=== PATIENT | female | born 1970 | race Caucasian/White ===

== ENCOUNTER 2017-04-22 14:03 | Emergency (ER) | payer OTHER ==
--- NOTE | 2017-04-22 15:38 | ER Document Report ---
HPI - HPI Patient complains to provider of: Left plantar foot pain Onset: This afternoon Pain Level: 5 Context: 47-year-old female has been having some discomfort plantar left foot near the heel but today when she was walking she felt something tear in the same area which caused excruciating sharp pain. She is unable to walk on it due to pain. Associated Symptoms: None Exacerbated by: Walking Relieved by: Denies Similar symptoms previously: No Recently seen / treated by doctor: No - ROS ROS below otherwise negative: Yes Systems Reviewed and Negative: Yes All other systems reviewed and negative Past Medical History - General Information source: Patient - Social History Smoking Status: Unknown if Ever Smoked Frequency of alcohol use: None Drug Abuse: None Lives with: Family Family History: Reviewed & Not Pertinent Neurological Medical History: Reports: Hx Migraine Surgical Hx: Negative - Immunizations Immunizations up to date: Yes Hx Diphtheria, Pertussis, Tetanus Vaccination: Yes Vertical Provider Document - CONSTITUTIONAL Agree With Documented VS: Yes Exam Limitations: No Limitations - INFECTION CONTROL TRAVEL OUTSIDE OF THE [place] IN LAST 30 DAYS: No - NECK Neck: Supple - RESPIRATORY O2 Sat by Pulse Oximetry: 97 - MUSCULOSKELETAL/EXTREMETIES Musculoskeletal/Extremeties: FROM, Tender - Plantar left foot fascia, Edema - Mild. negative: Eccymosis Notes: He will squeeze is negative and Achilles tendon is intact - NEURO Level of Consciousness: Awake, Alert Motor/Sensory: No Motor Deficit, No Sensory Deficit - DERM Integumentary: Warm, Dry Course - Re-evaluation Re-evalutation: 04/22/17 16:32 xrays are negative per radiologist. - Vital Signs Vital signs: Temp Pulse Resp BP Pulse Ox 98.0 F 77 20 160/94 H 97 04/22/17 14:14 04/22/17 14:14 04/22/17 14:14 04/22/17 14:14 04/22/17 14:14 Procedures - Immobilization Left Foot Time completed: 17:00 Pre-Proc Neuro Vasc Exam: Normal Immobilizer type: Russell wrap, Crutches Performed by: PCT Post-Proc Neuro Vasc Exam: Normal Alignment checked and good: Yes Discharge - Discharge Clinical Impression: Tendinitis of left foot Condition: Good Disposition: HOME, SELF-CARE Instructions: Russell Wrap ([facility]), Anti-Inflammatory Medication ([facility]), Use of Crutches ([facility]), Plantar Fasciitis or Heel Spur ([facility]) Additional Instructions: ice motrin Crutches for several days Russell wrap See the him tech Prescriptions: Ibuprofen [Motrin 800 mg Tablet] 800 mg PO Q8HP PRN #30 tablet PRN Reason: Referrals: STEPHEN ARCHULETA DPM [ACTIVE STAFF] - Follow up as needed
[2017-04-22] MEDS ORDERED: IBUPROFEN 800 MG TABLET PO ONE (15:44)
--- NOTE | 2017-04-22 16:06 | RADIOLOGY REPORT (SQ) ---
EXAM DESCRIPTION: FOOT LEFT COMPLETE COMPLETED DATE/TIME: 04/22/2017 3:59 pm REASON FOR STUDY: injury COMPARISON: None. NUMBER OF VIEWS: Three views. TECHNIQUE: AP, lateral and oblique radiographic images acquired of the left foot. LIMITATIONS: None. FINDINGS: MINERALIZATION: Normal. BONES: No acute fracture or dislocation. No worrisome bone lesions. JOINTS: No effusions. SOFT TISSUES: No soft tissue swelling. No foreign body. OTHER: No other significant finding. IMPRESSION: NO SIGNIFICANT RADIOGRAPHIC ABNORMALITY. TECHNICAL DOCUMENTATION: JOB ID: [id number] [employer]- All Rights Reserved Reading location - IP/workstation name: [email or web address]
--- NOTE | 2017-04-22 16:13 | RADIOLOGY REPORT (SQ) ---
EXAM DESCRIPTION: OS CALCIS/HEEL LEFT COMPLETED DATE/TIME: 04/22/2017 4:02 pm REASON FOR STUDY: injury COMPARISON: None. NUMBER OF VIEWS: Two views. TECHNIQUE: Plantar and lateral images acquired of the left calcaneous. LIMITATIONS: None. FINDINGS: MINERALIZATION: Normal. BONES: No acute fracture or dislocation. No worrisome bone lesions. JOINTS: No effusions. SOFT TISSUES: No soft tissue swelling. No foreign body. OTHER: No other significant finding. IMPRESSION: NEGATIVE STUDY OF THE LEFT CALCANEOUS. NO RADIOGRAPHIC EVIDENCE OF ACUTE INJURY. TECHNICAL DOCUMENTATION: JOB ID: [id number] [employer]- All Rights Reserved Reading location - IP/workstation name: [email or web address]
[2017-04-22 17:29] VITALS: BP 151/89
== END 2017-04-22 17:35 | disposition home or self-care (01) ==
LOC: ER 14:03
DX: M77.52 Other enthesopathy of left foot and ankle (principal); M79.672 Pain in left foot
CPT/HCPCS: 99283

== ENCOUNTER → 2019-07-10 | Outpatient (CLI) | payer SELFPAY ==
[2019-07-10 12:15] LABS: ANION GAP 6 (5-19); BLOOD UREA NITROGEN 10 mg/dL (7-20); CALCIUM 8.8 mg/dL (8.4-10.2); CARBON DIOXIDE 24 mmol/L (22-30); CHLORIDE 102 mmol/L (98-107); GLUCOSE 385 mg/dL (75-110); POTASSIUM 3.9 mmol/L (3.6-5.0)
== END ==
LOC: OD 10:52
PROVIDERS: ATTEND Pediatrics
DX: R81 Glycosuria (principal); R31.9 Hematuria, unspecified
CPT/HCPCS: 36415; 80048; 83036; 87086